=== PATIENT | male | born 1940 | race Caucasian/White ===

== ENCOUNTER 2023-03-31 19:58 | Emergency (ER) | payer MEDICARE, OTHER ==
[2023-03-31] MEDS ORDERED: Albuterol/Ipratropium 3.0-0.5 MG/3 ML Neb Soln NEB ONE (20:25)
[2023-03-31 20:45] LABS: BASOPHILS ABSOLUTE AUTO 0.04 K/uL (0.00-0.20); BASOPHILS PERCENT AUTO 0.4 % (0.0-2.0); EOSINOPHILS ABSOLUTE AUTO 0.62 K/uL (0.00-0.50); EOSINOPHILS PERCENT AUTO 6.1 % (0.0-5.0); HEMATOCRIT 38.6 % (39.0-49.0); HEMOGLOBIN 13.4 g/dL (13.1-16.8); LYMPHOCYTES ABSOLUTE AUTO 0.83 K/uL (0.50-3.50); LYMPHOCYTES PERCENT AUTO 8.1 % (10.0-50.0); MEAN CORPUSCULAR HGB CONC 34.7 g/dL (31.7-36.0); MEAN CORPUSCULAR VOLUME 89.4 fL (84.0-98.0); MONOCYTES ABSOLUTE AUTO 1.17 K/uL (0.00-1.00); MONOCYTES PERCENT AUTO 11.5 % (2.0-14.0); NEUTROPHILS ABSOLUTE AUTO 7.55 K/uL (1.40-7.00); NEUTROPHILS PERCENT AUTO 73.9 % (45.0-80.0); PLATELET COUNT,PLT 296 K/uL (150-350); RED BLOOD CELL COUNT 4.32 M/uL (4.33-5.41); RED CELL DISTRIBUTION WIDTH 14.4 % (11.2-14.1); WHITE BLOOD CELL COUNT,WBC 10.2 K/uL (4.0-10.2)
[2023-03-31 21:00] LABS: ALANINE AMINOTRANSFERASE,ALT 29 U/L (12-78); ALBUMIN 3.9 g/dL (3.4-5.0); ALKALINE PHOSPHATASE 75 IU/L (46-116); ASPARTATE AMNIOTRANSFERASE,AST 27 U/L (15-37); BILIRUBIN TOTAL 0.7 mg/dL (0.2-1.0); BLOOD UREA NITROGEN,BUN 17 mg/dL (7-18); CALCIUM 9.4 mg/dL (8.5-10.1); CARBON DIOXIDE,CO2 31.7 mmol/L (21.0-32.0); CHLORIDE,CL 98 mmol/L (98-107); CREATININE 0.77 mg/dL (0.51-1.17); GLUCOSE RANDOM 128 mg/dL (70-99); PROTEIN TOTAL,TP 7.3 g/dL (6.4-8.2); SODIUM,NA 136 mmol/L (136-145)
[2023-03-31 21:13] LABS: ANION GAP 9.1 meq/L (7-15); ESTIMATED GFR 89 mL/min (>=60); POTASSIUM,K 2.8 mmol/L (3.5-5.1)
[2023-03-31 21:16] LABS: CORONAVIRUS COVID-19 NAA NEGATIVE (NEGATIVE); INFLUENZA A NAA NEGATIVE (NEGATIVE); INFLUENZA B NAA NEGATIVE (NEGATIVE); RESPIRATORY SYNCYTIAL VIR NAA NEGATIVE (NEGATIVE)
[2023-03-31] MEDS ORDERED: Potassium Chloride 10 MEQ Tab.ER PO ONE (21:17)
[2023-03-31] MEDS ORDERED: predniSONE 20 MG Tab PO ONE (21:51)
== END 2023-03-31 22:15 | disposition home or self-care (01) ==
LOC: LL.ED 19:58
DX: J21.9 Acute bronchiolitis, unspecified (principal); Z79.82 Long term (current) use of aspirin; Z79.899 Other long term (current) drug therapy; Z20.822 Contact with and (suspected) exposure to COVID-19
CPT/HCPCS: 0241U; 36415; 71046; 80053; 85025; 94640; 94761; 99285; A9270-GY; J7512; J7620-GY

== ENCOUNTER 2023-12-23 07:26 | Emergency (ER) | payer MEDICARE, OTHER ==
[2023-12-23 07:52] LABS: APPEARANCE,URINE CLEAR; BILIRUBIN,URINE NEGATIVE (NEGATIVE); COLOR,URINE YELLOW; GLUCOSE,URINE NEGATIVE (NEGATIVE); KETONES,URINE 15 mg/dL (NEGATIVE); LEUKOCYTE ESTERASE,URINE SMALL (NEGATIVE); NITRITE,URINE NEGATIVE (NEGATIVE); OCCULT BLOOD,URINE NEGATIVE (NEGATIVE); PH,URINE 6.5 (5.0-9.0); PROTEIN,URINE 30 mg/dL (NEGATIVE); UROBILINOGEN,URINE 0.2 E.U./dL (0.2-1.0)
[2023-12-23 08:01] LABS: BACTERIA,URINE FEW /HPF (NONE TO FEW); EPITHELIAL CELLS,URINE FEW /LPF; MUCUS,URINE MANY /LPF (NEGATIVE); RBC,URINE 0-5 /HPF
[2023-12-23 08:02] LABS: WBC,URINE 20-30 /HPF
[2023-12-23 08:04] LABS: BASOPHILS ABSOLUTE AUTO 0.08 K/uL (0.00-0.20); BASOPHILS PERCENT AUTO 1.1 % (0.0-2.0); EOSINOPHILS ABSOLUTE AUTO 0.53 K/uL (0.00-0.50); EOSINOPHILS PERCENT AUTO 7.5 % (0.0-5.0); HEMATOCRIT 43.8 % (39.0-49.0); HEMOGLOBIN 15.3 g/dL (13.1-16.8); LYMPHOCYTES PERCENT AUTO 18.5 % (10.0-50.0); MEAN CORPUSCULAR HEMOGLOBIN 31.2 pg (28.2-33.3); MEAN CORPUSCULAR HGB CONC 34.9 g/dL (31.7-36.0); MEAN CORPUSCULAR VOLUME 89.4 fL (84.0-98.0); MONOCYTES ABSOLUTE AUTO 0.97 K/uL (0.00-1.00); MONOCYTES PERCENT AUTO 13.8 % (2.0-14.0); NEUTROPHILS ABSOLUTE AUTO 4.16 K/uL (1.40-7.00); NEUTROPHILS PERCENT AUTO 59.1 % (45.0-80.0); PLATELET COUNT,PLT 329 K/uL (150-350); RED CELL DISTRIBUTION WIDTH 14.7 % (11.2-14.1)
[2023-12-23] MEDS: Sodium Chloride 0.9% 10 ML Syringe FLUSH PRN (08:08)
[2023-12-23] MEDS: Albuterol/Ipratropium 3.0-0.5 MG/3 ML Neb Soln NEB ONE ×3 (08:08→09:40)
[2023-12-23] MEDS: methylPREDNISolone Sodium Succinate 40 MG/1 ML SDV IVPUSH ONE (08:08)
[2023-12-23 08:31] LABS: ALANINE AMINOTRANSFERASE,ALT 33 U/L (12-78); ALBUMIN 4.3 g/dL (3.4-5.0); ALKALINE PHOSPHATASE 70 IU/L (46-116); ANION GAP 11.4 meq/L (7-15); ASPARTATE AMNIOTRANSFERASE,AST 24 U/L (15-37); BLOOD UREA NITROGEN,BUN 18 mg/dL (7-18); CALCIUM 9.9 mg/dL (8.5-10.1); CHLORIDE,CL 97 mmol/L (98-107); CREATININE 0.83 mg/dL (0.51-1.17); ESTIMATED GFR 87 mL/min (>=60); GLUCOSE RANDOM 112 mg/dL (70-99); POTASSIUM,K 3.4 mmol/L (3.5-5.1); PRO B-TYPE NATRIUR PEPT,BNPPRO 258 pg/mL (0-125); PROTEIN TOTAL,TP 8.1 g/dL (6.4-8.2); SODIUM,NA 136 mmol/L (136-145)
[2023-12-23] MEDS: Iopamidol 612 MG/ML 100 ML Bottle IVPUSH ONE (08:53)
[2023-12-23 09:42] LABS: CORONAVIRUS COVID-19 NAA NEGATIVE (NEGATIVE); INFLUENZA A NAA NEGATIVE (NEGATIVE); INFLUENZA B NAA NEGATIVE (NEGATIVE); RESPIRATORY SYNCYTIAL VIR NAA NEGATIVE (NEGATIVE)
== END 2023-12-23 14:15 | disposition home or self-care (01) ==
LOC: LL.ED 07:26
DX: R06.2 Wheezing (principal); I10 Essential (primary) hypertension; Z79.82 Long term (current) use of aspirin; Z79.899 Other long term (current) drug therapy
CPT/HCPCS: 0241U; 36415; 71046; 71260; 80053; 81001; 83605; 83880; 85025; 85379; 87086; 87186; 94640; 96374; 99285; J2920; Q9967; J3490; J7620-GY

== ENCOUNTER 2024-06-15 08:11 | Day surgery (SDC) | payer MEDICARE, OTHER ==
[~2024-06-15 08:11] MED LIST: Propofol 200 MG/20 ML SDV ONE; Sodium Chloride 0.9% 10 ML Syringe FLUSH PRN
[2024-06-15] MEDS: Lactated Ringers 1,000 ML IV SCH (08:16)
== END 2024-06-15 10:30 | disposition home or self-care (01) ==
LOC: LL.SDS 08:11
PROVIDERS: ATTEND Surgery
DX: K57.30 Diverticulosis of large intestine without perforation or abscess without bleeding (principal); I10 Essential (primary) hypertension; K21.9 Gastro-esophageal reflux disease without esophagitis; D50.9 Iron deficiency anemia, unspecified; E78.5 Hyperlipidemia, unspecified; R97.20 Elevated prostate specific antigen [PSA]; R19.7 Diarrhea, unspecified; Z86.010 Personal history of colon polyps; Z79.899 Other long term (current) drug therapy; Z87.891 Personal history of nicotine dependence
CPT/HCPCS: 00811; 99100; J2704; J7120